=== PATIENT | female | born 1945 | race Caucasian/White ===

== ENCOUNTER 2017-12-10 23:32 | Emergency (ER) | payer OTHER, BC ==
[~2017-12-10] VITALS: Ht 165.1 cm; Wt 82.0 kg
[~2017-12-10 23:32] MED LIST: AMLODIPINE BESY10 MG PO; LIDOCAINE700 MG TD; MELOXICAM15 MG PO; METHYLPREDNISOLO4 M1 PO; METOPROLOL SUC100 MG PO; NAPROSYN500 MG PO; SIMVASTATIN20 MG PO; VALSARTAN-HCTZ1 EAC3 PO
[2017-12-11 03:24] VITALS: BP 171/73
== END 2017-12-11 03:25 | disposition home or self-care (01) ==
LOC: EME 23:32
DX: I10 Essential (primary) hypertension (principal); R51 Headache; E78.5 Hyperlipidemia, unspecified
CPT/HCPCS: 70450